=== PATIENT | male | born 1985 | race Caucasian/White ===

== ENCOUNTER 2018-04-24 19:30 | Emergency (ER) | payer SELFPAY ==
[~2018-04-24] VITALS: Ht 175.3 cm; Wt 88.9 kg
[2018-04-24 20:06] VITALS: BP 136/84; Ht 175.3 cm; Wt 88.9 kg
== END 2018-04-24 22:08 | disposition home or self-care (01) ==
LOC: ED 19:30
DX: R21 Rash and other nonspecific skin eruption (principal)